=== PATIENT | female | born 1975 | race Caucasian/White ===

== ENCOUNTER 2017-08-09 01:26 | Emergency (ER) | payer BC ==
[~2017-08-09] VITALS: Ht 170.2 cm; Wt 91.9 kg
[2017-08-09] MEDS ORDERED: ONDANSETRON ODT 4 MG TAB.RAPDIS PO ONE ×2 (02:15→03:30)
[2017-08-09] MEDS ORDERED: HYDROmorphone PF 1 MG/ML DISP.SYRIN IM ONE (02:15)
--- NOTE | 2017-08-09 02:38 | PHYS DOC ---
General Chief Complaint: DENTAL PROBLEM Stated Complaint: FACIAL PAIN,DENTAL PAIN X 3 DAYS Time Seen by MD: 01:46 Source: patient Exam Limitations: no limitations Problems: History of Present Illness Initial Comments Patient is a 42-year-old female who comes to the ED complaining of dental and facial pain. Patient states that she is scheduled for a root canal later this morning, she's been taking amoxicillin, Advil, and Tylenol with codeine as prescribed and it had been helping until today. Today patient is complaining of severe left upper posterior molar dental pain as well as left maxillary sinus discomfort. She denies fever chills sweats or myalgias she has no throat or tongue swelling and denies any dysphasia, hoarseness, cough, or dyspnea on exertion. 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 Her ED vital signs are stable blood pressure with physiologic response to discomfort. Timing/Duration: other Severity: severe Location: facial, dental Prearrival Treatment: over the counter meds, prescription meds Modifying Factors: improves with other Associated Symptoms: facial pain/swelling, tooth pain Allergies: Coded Allergies: No Known Allergies (Verified Allergy, Unknown, 08/09/17) Past Medical History Medical History: no pertinent history Surgical History: no surgical history Social History Smoker: non-smoker Alcohol: none Drugs: none Constitutional: denies chills, denies diaphoresis, denies fever, denies malaise Eyes: denies blindness, denies blurred vision, denies drainage Ears: denies dizziness, denies pain, denies tinnitus Nose: denies congestion, denies epistaxis, denies pain Mouth: see HPI Throat: denies pain, denies swelling, denies neck stiffness, denies painful swallowing, denies difficulty with fluids Respiratory: denies cough, denies shortness of breath, denies wheezing Cardiovascular: denies chest pain, denies palpitations, denies syncope Gastrointestinal: denies abdominal pain, denies nausea, denies vomiting Neurological: see HPI Physical Exam General Appearance: WD/WN, moderate distress Eyes: bilateral eye normal inspection, bilateral eye PERRL, bilateral eye EOMI Nose: normal inspection Mouth/Throat: other (left upper posterior molar with caries and gingival swelling no bony tenderness no discharge or purulence. 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 0252: Patient rechecked, she is much more relaxed and states her pain is almost resolved. She really states that she doesn't want any imaging or further workup. As the Dilaudid will wear off shortly, Percocet 10 mg and a repeat Zofran 4 mg will be given in the emergency department. She is advised that she may double up on her [place] 5 mg prescription and is to take pain medications with food and stool softeners. Signs and symptoms to monitor and indications for urgent return were discussed and the patient's questions were answered. She expressed agreement and understanding with treatment plan. Departure Time of Disposition: 02:53 Disposition: 01 HOME, SELF-CARE Diagnosis: dental caries, pain control Condition: IMPROVED Patient Instructions: Dental Caries Additional Instructions: Continue current medications. Aggressive hydration with Gatorade or water. Take medications with food to avoid GI upset. Yojx-[id number]-[id number] stool softeners to avoid opiate associated constipation. Zofran ODT starter pack was dispensed in the emergency department. Take one every 4-6 hours as needed for nausea. Follow-up with your vendor relationship manager later today for root canal as scheduled. Return to ED with new or changing symptoms. WEST GUNDERSON DO Aug 09, 2017 02:38
[2017-08-09 03:10] VITALS: BP 141/72
[2017-08-09] MEDS ORDERED: ONDANSETRON 4MG ODT 4TABLET STARTPACK. PO ONE (03:30)
[2017-08-09] MEDS ORDERED: oxyCODONE/APAP 10/325 1 TAB TABLET PO ONE (03:30)
== END 2017-08-09 03:10 | disposition home or self-care (01) ==
LOC: ER 01:26
DX: K02.9 Dental caries, unspecified (principal)
CPT/HCPCS: 96372; 99284; J1170; Q0162

== ENCOUNTER → 2017-10-26 | Outpatient (CLI) | payer OTHER ==
--- NOTE | 2017-10-26 11:23 | RAD ---
DATE: 10/26/2017 EXAM: MAMMO MARIA TERESA DIMITRI TURCIOS, BREAST LEFT HISTORY: Left breast pain COMPARISON: None available This study was interpreted with the benefit of Computerized Aided Detection (CAD). The breast parenchyma is heterogeneously dense, which could reduce sensitivity of mammography. Breast parenchyma level C. FINDINGS: 2-D and 3-D tomosynthesis imaging was performed in CC and MLO projections. There are several small benign-appearing lymph node type densities in the lateral aspects of both breasts. An 8 mm smooth nodule is seen located just lateral to the midline of the left breast on CC tomogram image #44. There are additional small benign-appearing lymph nodes in the axillary regions. No suspicious microcalcifications are evident. Left breast ultrasound, 10/26/2017: A targeted ultrasound exam of the left breast was performed in the area of pain laterally. Several small benign-appearing lymph nodes are seen in the left axilla and axillary tail region. Approximately 4 cm from the nipple at the 1:00 location there is a 10 x 7 x 5 mm predominantly anechoic structure with posterior acoustic shadowing. It is wider than tall. The appearance is that of a cyst. This probably corresponds in location to the nodule seen on the left breast tomograms. Deeper in the left breast at the 1:00 location approximately 3 cm from the nipple there is an additional small smooth nodule measuring 3 x 4 x 8 mm. There are low level internal echoes with slight posterior acoustic enhancement. It is wider than tall. No internal color flow is seen. This is probably a complicated cyst versus a small fibroadenoma. No other abnormality was identified. IMPRESSION: 1. Simple cyst and a second probable complicated cyst at the 1:00 location in the left breast as described above. Sonographic follow-up beginning in 6 months is suggested to establish stability. 2. No significant right breast abnormality is detected. BI-RADS CATEGORY: 3 PROBABLY BENIGN FINDING(S)-SHORT INTERVAL FOLLOW-UP SUGGESTED RECOMMENDED FOLLOW-UP: 6M 6 MONTH FOLLOW-UP PQRS compliance statement: Patient information was entered into a reminder system with a target due date for the next mammogram. Mammography is a sensitive method for finding small breast cancers, but it does not detect them all and is not a substitute for careful clinical examination. A negative mammogram does not negate a clinically suspicious finding and should not result in delay in biopsying a clinically suspicious abnormality. "Our facility is accredited by the [employer] Mammography Program."
== END | disposition home or self-care (01) ==
LOC: MAMMO 08:55
PROVIDERS: ATTEND Nurse Practitioner Women's Health
DX: Z12.39 Encounter for other screening for malignant neoplasm of breast (principal); N60.12 Diffuse cystic mastopathy of left breast; N63.20 Unspecified lump in the left breast, unspecified quadrant
CPT/HCPCS: 76641; 77066; G0279; 77062

== ENCOUNTER → 2018-06-25 | Outpatient (CLI) | payer OTHER ==
--- NOTE | 2018-06-25 13:03 | RAD ---
Left breast ultrasound, 06/25/2018: History: Six-month follow-up of nodules A targeted ultrasound exam of left breast was performed at the 1:00 location. On the previous study of 10/26/2017 at the 1:00 location approximately 3 cm in the nipple there was a small hypoechoic nodule. It is no longer visualized. This presumably represented a cyst which has resolved. On the previous study at the 1:00 location approximately 4 cm from the nipple there was a predominantly cystic appearing nodule. It is redemonstrated on the current study and appears have to have decreased slightly in size. It currently measures 7 x 4 x 5 mm compared to measurements of 10 x 7 x 4 mm on the previous study. Its margins are smooth. It is wider than tall. There are low level internal echoes. Its decrease in size suggests that this is a benign cyst. IMPRESSION: 1. One small cyst seen on the previous study has resolved while the other has decreased in size, compatible with a benign etiology. 2. Routine bilateral mammographic surveillance beginning at the anniversary of the patient's 10/26/2017 study is suggested. BI-RADS 2-benign findings
== END | disposition home or self-care (01) ==
LOC: US 11:50
PROVIDERS: ATTEND Nurse Practitioner Women's Health
DX: R92.8 Other abnormal and inconclusive findings on diagnostic imaging of breast (principal)
CPT/HCPCS: 76641

== ENCOUNTER → 2018-06-27 | Outpatient (CLI) | payer OTHER ==
[2018-06-27 19:12] LABS: ALBUMIN 3.8 g/dL (3.4-5.0); CALCIUM 9.2 mg/dL (8.5-10.1); CREATININE 0.9 mg/dL (0.6-1.0); GFR 68.7; POTASSIUM 3.6 mmol/L (3.5-5.1); TOTAL BILIRUBIN 0.8 mg/dL (0.2-1.0); TOTAL PROTEIN 7.7 g/dL (6.4-8.2)
[2018-06-28 15:09] LABS: FREE T4 1.07 ng/dL (0.76-1.46); THYROID STIM HORMONE (TSH) 2.088 uIU/mL (0.358-3.740)
[2018-06-28 20:07] LABS: ESTRADIOL LEVEL 357.7 pg/mL (.); FSH 3.9 mIU/mL (.); PROGESTERONE <0.1 ng/mL (.); T3 TOTAL 98 ng/dL (71-180); TESTOSTERONE TOTAL 16 ng/dL (8-48)
== END | disposition home or self-care (01) ==
LOC: LAB 18:18
PROVIDERS: ATTEND Nurse Practitioner Women's Health
DX: Z13.220 Encounter for screening for lipoid disorders (principal); L65.9 Nonscarring hair loss, unspecified; R61 Generalized hyperhidrosis; R53.83 Other fatigue; Z68.29 Body mass index [BMI] 29.0-29.9, adult
CPT/HCPCS: 36415; 80053; 80061; 82306; 82670; 83001; 84144; 84403; 84439; 84443; 84480

== ENCOUNTER → 2018-07-26 | Outpatient (CLI) | payer OTHER | END | disposition home or self-care (01) | LOC: SPEC 12:16 | DX: Z01.419 Encounter for gynecological examination (general) (routine) without abnormal findings (principal) | CPT/HCPCS: 88175 ==

== ENCOUNTER → 2019-02-21 | Outpatient (CLI) | payer OTHER ==
--- NOTE | 2019-02-21 09:26 | RAD ---
DATE: 02/21/2019 EXAM: MAMMO MARIA TERESA SCREENING BILATERAL HISTORY: Routine screen COMPARISON: 10/26/2017 This study was interpreted with the benefit of Computerized Aided Detection (CAD). Breast Density: HETERO The breast parenchyma is heterogenously dense, which could reduce sensitivity of mammography. Breast parenchyma level C. FINDINGS: 2-D and 3-D tomosynthesis imaging was performed in CC and MLO projections. Benign-appearing lymph node type densities are again noted laterally in both breasts. The small nodule seen just lateral to the midline of the left breast on the previous study has regressed. No new or enlarging breast densities are seen. No suspicious microcalcifications are evident. IMPRESSION: Stable mammograms without evidence of malignancy. BI-RADS CATEGORY: 2 BENIGN FINDING(S) RECOMMENDED FOLLOW-UP: 12M 12 MONTH FOLLOW-UP PQRS compliance statement: Patient information was entered into a reminder system with a target due date for the next mammogram. Mammography is a sensitive method for finding small breast cancers, but it does not detect them all and is not a substitute for careful clinical examination. A negative mammogram does not negate a clinically suspicious finding and should not result in delay in biopsying a clinically suspicious abnormality. "Our facility is accredited by the [employer] Mammography Program."
== END | disposition home or self-care (01) ==
LOC: MAMMO 08:38
PROVIDERS: ATTEND Nurse Practitioner Women's Health
DX: Z12.31 Encounter for screening mammogram for malignant neoplasm of breast (principal); N63.20 Unspecified lump in the left breast, unspecified quadrant
CPT/HCPCS: 77063; 77067

== ENCOUNTER → 2020-02-03 | Outpatient (CLI) | payer OTHER | END | disposition home or self-care (01) | LOC: LAB 16:24 | PROVIDERS: ATTEND Internal Medicine Cardiovascular Disease | DX: R50.9 Fever, unspecified (principal); R05 Cough; R06.02 Shortness of breath; Z20.828 Contact with and (suspected) exposure to other viral communicable diseases | CPT/HCPCS: 87635 ==

== ENCOUNTER → 2020-02-26 | Outpatient (CLI) | payer OTHER ==
--- NOTE | 2020-02-26 13:41 | RAD ---
INDICATION: 44 years of age asymptomatic female patient presents for screening mammography. TECHNIQUE: Full field craniocaudal and mediolateral oblique images of both breasts were obtained using digital technique with tomosynthesis and also analyzed with computer-aided detection software. COMPARISON: Prior mammographic imaging dating back to 02/21/2019. BREAST COMPOSITION: Category C: The breast tissue is heterogeneously dense, which could obscure detection of small masses. FINDINGS: Benign calcifications are present. The parenchymal pattern appears stable. No suspicious masses, microcalcifications or architectural distortion is present to suggest malignancy in either breast. The visualized axillae are unremarkable. IMPRESSION: No mammographic evidence of malignancy. RECOMMENDATION: Annual screening mammography is recommended, unless clinically indicated sooner based on symptoms or change in physical exam. BIRADS 2: BENIGN Electronically signed by: Rafeal Campbell MD (02/26/2020 1:38 PM) [id number]
== END ==
LOC: MAMMO 10:07
PROVIDERS: ATTEND Nurse Practitioner Women's Health
DX: Z12.31 Encounter for screening mammogram for malignant neoplasm of breast (principal)
CPT/HCPCS: 77063; 77067

== ENCOUNTER → 2020-03-08 | Outpatient (CLI) | payer OTHER ==
[2020-03-08 09:01] LABS: ALBUMIN 3.5 g/dL (3.4-5.0); ALBUMIN/GLOBULIN RATIO 0.9 (1.0-1.7); CALCIUM 8.5 mg/dL (8.5-10.1); GFR 60.5; TOTAL BILIRUBIN 0.6 mg/dL (0.2-1.0); TOTAL PROTEIN 7.3 g/dL (6.4-8.2)
[2020-03-08 11:22] LABS: BASO # 0.1 x10^3/uL (0.0-0.2); BASO % 1 % (0-3); EOS # 0.1 x10^3/uL (0.0-0.7); EOS % 2 % (0-3); HEMATOCRIT 41.4 % (36.0-47.0); HEMOGLOBIN 14.2 g/dL (12.0-15.5); LYMPH # 1.1 x10^3/uL (1.0-4.8); LYMPH % 20 % (24-48); MEAN CORPUSCULAR HEMOGLOBIN 32 pg (25-35); MEAN CORPUSCULAR HGB CONC 34 g/dL (31-37); MEAN CORPUSCULAR VOLUME 94 fL (79-100); MONO # 0.3 x10^3/uL (0.0-1.1); MONO % 6 % (0-9); NEUT # 3.7 x10^3uL (1.8-7.7); NEUT % 70 % (31-73); PLATELET COUNT 311 x10^3/uL (140-400); RED BLOOD COUNT 4.42 x10^6/uL (3.50-5.40); RED CELL DISTRIBUTION WIDTH 12.7 % (11.5-14.5); WHITE BLOOD COUNT 5.3 x10^3/uL (4.0-11.0)
[2020-03-08 14:23] LABS: FREE T4 0.92 ng/dL (0.76-1.46); THYROID STIM HORMONE (TSH) 1.066 uIU/mL (0.358-3.740)
[2020-03-08 19:07] LABS: DHEA SO4 105.2 ug/dL (57.3-279.2); ESTRADIOL LEVEL 67.1 pg/mL (.); PROGESTERONE 0.2 ng/mL (.)
[2020-03-09 00:06] LABS: HEMOGLOBIN A1C 4.7 % (4.8-5.6)
[2020-03-12 10:08] LABS: TESTOSTERONE FREE 0.42 ng/dL (0.10-0.85); TESTOSTERONE TOTAL 27 ng/dL (8-48)
== END ==
LOC: LAB 06:38
PROVIDERS: ATTEND Nurse Practitioner Women's Health
DX: Z13.1 Encounter for screening for diabetes mellitus (principal); Z13.220 Encounter for screening for lipoid disorders; Z13.21 Encounter for screening for nutritional disorder; Z00.00 Encounter for general adult medical examination without abnormal findings; N95.9 Unspecified menopausal and perimenopausal disorder; G25.81 Restless legs syndrome; F32.9 Major depressive disorder, single episode, unspecified; F41.9 Anxiety disorder, unspecified; Z79.899 Other long term (current) drug therapy
CPT/HCPCS: 36415; 80053; 80061; 82306; 82627; 82670; 83036; 84144; 84402; 84403; 84439; 84443; 84481; 85025

== ENCOUNTER → 2020-04-15 | Outpatient (CLI) | payer OTHER | LOC: LAB 07:52 | PROVIDERS: ATTEND Internal Medicine Cardiovascular Disease | DX: J45.909 Unspecified asthma, uncomplicated (principal); Z20.828 Contact with and (suspected) exposure to other viral communicable diseases | CPT/HCPCS: 36415; U0003 ==

== ENCOUNTER → 2020-04-21 | Outpatient (CLI) | payer OTHER | END | disposition home or self-care (01) | LOC: LAB 17:11 | PROVIDERS: ATTEND Internal Medicine Cardiovascular Disease | DX: Z20.828 Contact with and (suspected) exposure to other viral communicable diseases (principal) | CPT/HCPCS: C9803; U0003; 36415 ==

== ENCOUNTER → 2020-08-09 | Outpatient (CLI) | payer OTHER ==
--- NOTE | 2020-08-09 13:30 | RAD ---
EXAMINATION: NECK SOFT TISSUE, 08/09/2020 8:00 AM CLINICAL INDICATION: Anterior neck pain COMPARISON: None. TECHNIQUE: Grayscale and color Doppler ultrasound imaging performed of the neck with a focus on the area of pain in the right submandibular/submental region. FINDINGS: No mass, fluid, or lymphadenopathy in the area of pain in the right neck. IMPRESSION: No sonographic abnormality in the right neck in the area of pain. If further evaluation is needed, CT of the neck with contrast could be obtained. Electronically signed by: Leia Osman MD (08/09/2020 1:27 PM) [id number]
== END ==
LOC: US 07:48
PROVIDERS: ATTEND Physician Assistant
DX: M54.2 Cervicalgia (principal)
CPT/HCPCS: 76536

== ENCOUNTER → 2020-08-10 | Outpatient (CLI) | payer OTHER | LOC: LAB 09:46 | PROVIDERS: ATTEND Internal Medicine Cardiovascular Disease | DX: Z20.828 Contact with and (suspected) exposure to other viral communicable diseases (principal) | CPT/HCPCS: U0003 ==

== ENCOUNTER → 2020-09-10 | Outpatient (CLI) | payer OTHER ==
--- NOTE | 2020-09-10 13:34 | RAD ---
4 VIEW LEFT KNEE SERIES Clinical indications: Left knee pain. FINDINGS: No acute fracture or dislocation or lytic process is seen. No significant joint space narro wing or spurring is seen. The patella is normally aligned. No significant joint space narrowing or sp urring is seen. No erosive arthropathy is evident. No significant swelling or suprapatellar bursa is seen to indicate a joint effusion radiographically. IMPRESSION: No significant osseous abnormality. 2 VIEW STUDY OF THE LEFT HIP AND AP VIEW OF THE PELVIS Clinical indications: Left hip pain. FINDINGS: The hip joints are symmetric and no significant degenerative joint space narrowing or spurr ing is seen. No erosive arthropathy is evident. 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 The SI joints are unremarkable. No acute fracture or dislocation or lytic process or amado stases is evident. IMPRESSION: No significant osseous abnormality. Electronically signed by: Hayden Cunningham MD (09/10/2020 11:45 AM) [id number]
--- NOTE | 2020-09-13 00:15 | RAD ---
INDICATION: Varicose veins COMPARISON: None. TECHNIQUE: Color, grayscale and spectral doppler ultrasound images obtained of the bilateral lower ex tremity saphenous system. FINDINGS: Measurements from proximal to distal are in mm: Right: Greater Saphenous: Thigh 6.6, 5.5, 4.7; Calf 3.3, 2.1, 2.3. From proximal to distal the reflux time in seconds is: 1.3, 2.1, 2.2, 1.3, 1.4, 1.7 Lesser Saphenous: Calf: 4.3, 2.6 Left: Greater Saphenous: Thigh 8.5, 5.6, 4.9; Calf 4.8, 3.9 From proximal to distal the reflux time in seconds is: 1.1, 3, 1.5, 1.8, 3 Lesser Saphenous: Not seen at distal thigh, 2.2 at calf IMPRESSION: 1. Right greater saphenous vein reflux is identified from the groin to the ankle. 2. Left greater saphenous vein reflux is identified from the groin to the proximal calf. Tortuous sheila earance. Electronically signed by: Michael Anaya MD (09/13/2020 12:13 AM) [id number]
== END ==
LOC: RAD 10:19
PROVIDERS: ATTEND Nurse Practitioner Women's Health
DX: I83.93 Asymptomatic varicose veins of bilateral lower extremities (principal); M16.12 Unilateral primary osteoarthritis, left hip; M25.562 Pain in left knee; G89.29 Other chronic pain
CPT/HCPCS: 73502; 73564; 93970

== ENCOUNTER → 2020-10-15 | Outpatient (CLI) | payer OTHER ==
[~2020-10-15] MED LIST: IOHEXOL 240 MG/ML 50ML VIAL. ONE; IOHEXOL 240 MG/ML 50ML VIAL. PO ONE; IOHEXOL 300 MG/ML 75 ML VIAL. IV ONE
--- NOTE | 2020-10-15 12:25 | RAD ---
SONOGRAPHY OF THE LEFT KNEE Clinical indications: Left knee pain. Mass lesion seen on MRI study October 13, 2020. FINDINGS: High-resolution sonography of the lateral anterior aspect of the left knee inferior to the patella was performed. There is a solid mass lesion present here measuring 2.9 cm x 1.3 cm x 2.2 cm i n size. Color Doppler flow is seen within the mass some of which is arterial in nature. This correspo nds to the MRI finding. IMPRESSION: Finding seen on MRI study corresponds to a solid mass measuring up to 2.9 cm in size. Dif ferential considerations include synovial sarcoma versus focal nodular synovitis/pigmented villonodul ar synovitis. Another possibility is arteriovenous malformation/hemangioma. Orthopedic consultation i s recommended. Electronically signed by: Hayden Cunningham MD (10/15/2020 12:23 PM) [id number]
--- NOTE | 2020-10-15 13:20 | RAD ---
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 TECHNIQUE: After IV infusion of 75 cc of Omnipaque 300, helical CT scanning of the abdomen and pelvis was performed. GI contrast was administered per mouth. PQRS COMPLIANCE STATEMENT One or more of the following individualized dose reduction techniques were utilized for this study: 1. Automated exposure control 2. Adjustment of the mA and/or kV according to patient size 3. Use of iterative reconstruction technique COMPARISON: None available. CHEST CT: No enlarged thoracic lymphadenopathy is evident. No focal aneurysmal dilatation or dissecti on of the thoracic aorta is seen. The heart size normal and no pericardial effusion is seen. On serie s 4 and image 72, a subpleural 5 mm lung nodule is seen within the posterior right lower lobe. No gaby g nodule or lung mass is evident. No consolidative lung infiltrate is seen. No pleural effusion or pn eumothorax is evident. Proximal bronchial tree is patent. No lytic process is seen. IMPRESSION: Small 5 mm right lower lobe lung nodule. As per Fleischner guidelines, follow-up noncontr ast chest CT in 12 months is recommended if the patient is at high risk for lung malignancy such as s moking history. However, if mass within the left knee proves to be a sarcoma, then short-term follow- up chest CT in 3 months may be needed. ABDOMEN AND PELVIS CT: There are 2 small lesions within the posterior segment of the right lobe of th e liver. The first one is seen on series 7 image 45 which measures 4 Hounsfield units. The second is located more inferiorly and laterally and measures -2 Hounsfield units. Therefore, these most likely represent cysts. These lesions are seen on series 7 and image 45 and 54 respectively. There is a tiny lesion within the anterior dome of the left lobe liver seen on image 26. This may represent addition al hepatic cyst but is too small to accurately characterized at this point in time. There is a simila r lesion seen within the lateral aspect of the right lobe liver on image 32. There is another similar lesion seen on image 45 adjacent to the gallbladder fossa. The spleen is not enlarged. The pancreas and gallbladder are normal. No extrahepatic biliary ductal dilatation is seen. No adrenal mass is alyce dent. Both kidneys are normal without hydronephrosis or hydroureter. Urinary bladder is not abnormall y distended. No uterine mass is seen. No dominant ovarian cyst or mass is seen. No focal aneurysmal d ilatation of the abdominal aorta is seen. No enlarged abdominal or pelvic lymphadenopathy is seen. No obstructive bowel pattern is evident. Terminal ileum is unremarkable. The appendix is normal. No juan e air or free fluid or mesenteric edema is seen. No lytic process is seen. IMPRESSION: Small hepatic cysts. Additional indeterminate subcentimeter hypodense nodules of liver ar e seen which most likely represent additional smaller cysts. No acute abnormality of the abdomen or pelvis. Electronically signed by: Hayden Cunningham MD (10/15/2020 1:18 PM) [id number]
== END ==
LOC: US 11:04
PROVIDERS: ATTEND Nurse Practitioner Women's Health
DX: C49.9 Malignant neoplasm of connective and soft tissue, unspecified (principal)
CPT/HCPCS: 71260; 74177; 76881; Q9966; Q9967

== ENCOUNTER → 2020-10-18 | Outpatient (CLI) | payer OTHER ==
[2020-10-18 10:16] LABS: BASO # 0.1 x10^3/uL (0.0-0.2); BASO % 1 % (0-3); EOS # 0.1 x10^3/uL (0.0-0.7); EOS % 2 % (0-3); HEMATOCRIT 41.9 % (36.0-47.0); HEMOGLOBIN 14.5 g/dL (12.0-15.5); LYMPH # 1.2 x10^3/uL (1.0-4.8); LYMPH % 21 % (24-48); MEAN CORPUSCULAR HEMOGLOBIN 32 pg (25-35); MEAN CORPUSCULAR HGB CONC 35 g/dL (31-37); MEAN CORPUSCULAR VOLUME 92 fL (79-100); MONO # 0.3 x10^3/uL (0.0-1.1); MONO % 6 % (0-9); NEUT % 70 % (31-73); PLATELET COUNT 336 x10^3/uL (140-400); RED BLOOD COUNT 4.57 x10^6/uL (3.50-5.40); RED CELL DISTRIBUTION WIDTH 12.7 % (11.5-14.5); WHITE BLOOD COUNT 5.7 x10^3/uL (4.0-11.0)
[2020-10-18 10:42] LABS: ALBUMIN 3.7 g/dL (3.4-5.0); ALBUMIN/GLOBULIN RATIO 0.9 (1.0-1.7); CALCIUM 8.8 mg/dL (8.5-10.1); CREATININE 0.9 mg/dL (0.6-1.0); POTASSIUM 3.7 mmol/L (3.5-5.1); TOTAL BILIRUBIN 0.4 mg/dL (0.2-1.0); TOTAL PROTEIN 7.7 g/dL (6.4-8.2)
[2020-10-18 15:45] LABS: FREE T4 0.98 ng/dL (0.76-1.46)
[2020-10-18 15:46] LABS: THYROID STIM HORMONE (TSH) 2.167 uIU/mL (0.358-3.740)
[2020-10-18 21:10] LABS: DHEA SO4 119.9 ug/dL (57.3-279.2)
== END ==
LOC: LAB 08:19
PROVIDERS: ATTEND Nurse Practitioner Women's Health
DX: Z13.1 Encounter for screening for diabetes mellitus (principal); Z13.220 Encounter for screening for lipoid disorders; Z13.21 Encounter for screening for nutritional disorder; E55.9 Vitamin D deficiency, unspecified; N95.9 Unspecified menopausal and perimenopausal disorder; E03.9 Hypothyroidism, unspecified; L65.9 Nonscarring hair loss, unspecified; R61 Generalized hyperhidrosis
CPT/HCPCS: 36415; 80053; 80061; 82306; 82627; 82670; 84144; 84402; 84403; 84439; 84443; 84481; 85025

== ENCOUNTER → 2021-01-25 | Outpatient (CLI) | payer OTHER | LOC: ECHO 09:08 | PROVIDERS: ATTEND Internal Medicine Cardiovascular Disease | DX: I87.2 Venous insufficiency (chronic) (peripheral) (principal); I87.323 Chronic venous hypertension (idiopathic) with inflammation of bilateral lower extremity | CPT/HCPCS: 93306 ==

== ENCOUNTER → 2021-04-08 | Outpatient (CLI) | payer OTHER ==
[2021-04-08 09:56] LABS: BASO # 0.1 x10^3/uL (0.0-0.2); BASO % 1 % (0-3); EOS # 0.1 x10^3/uL (0.0-0.7); EOS % 2 % (0-3); HEMATOCRIT 43.4 % (36.0-47.0); LYMPH # 1.3 x10^3/uL (1.0-4.8); LYMPH % 22 % (24-48); MEAN CORPUSCULAR HEMOGLOBIN 32 pg (25-35); MEAN CORPUSCULAR HGB CONC 35 g/dL (31-37); MEAN CORPUSCULAR VOLUME 92 fL (79-100); MONO # 0.4 x10^3/uL (0.0-1.1); MONO % 7 % (0-9); NEUT # 3.9 x10^3uL (1.8-7.7); NEUT % 68 % (31-73); PLATELET COUNT 344 x10^3/uL (140-400); RED BLOOD COUNT 4.72 x10^6/uL (3.50-5.40); RED CELL DISTRIBUTION WIDTH 12.9 % (11.5-14.5); WHITE BLOOD COUNT 5.7 x10^3/uL (4.0-11.0)
[2021-04-08 10:18] LABS: ALBUMIN/GLOBULIN RATIO 1.1 (1.0-1.7); CREATININE 0.9 mg/dL (0.6-1.0); POTASSIUM 4.2 mmol/L (3.5-5.1); TOTAL BILIRUBIN 0.5 mg/dL (0.2-1.0); TOTAL PROTEIN 7.8 g/dL (6.4-8.2)
[2021-04-08 15:32] LABS: FREE T4 0.89 ng/dL (0.76-1.46); THYROID STIM HORMONE (TSH) 0.905 uIU/mL (0.358-3.740)
[2021-04-09 01:08] LABS: ESTRADIOL LEVEL 74.3 pg/mL (.)
[2021-04-09 02:08] LABS: DHEA SO4 135.6 ug/dL (57.3-279.2); PROGESTERONE 1.5 ng/mL (.)
== END ==
LOC: LAB 09:08
PROVIDERS: ATTEND Nurse Practitioner Women's Health
DX: Z13.1 Encounter for screening for diabetes mellitus (principal); Z13.220 Encounter for screening for lipoid disorders; Z13.21 Encounter for screening for nutritional disorder; N95.9 Unspecified menopausal and perimenopausal disorder; R61 Generalized hyperhidrosis; E55.9 Vitamin D deficiency, unspecified; R53.83 Other fatigue; E34.9 Endocrine disorder, unspecified; G47.10 Hypersomnia, unspecified; L65.9 Nonscarring hair loss, unspecified; Z79.890 Hormone replacement therapy
CPT/HCPCS: 36415; 80053; 80061; 82306; 82607; 82627; 82670; 84144; 84402; 84403; 84439; 84443; 84481; 85025

== ENCOUNTER → 2021-04-24 | Outpatient (CLI) | payer OTHER | LOC: LAB 09:35 | PROVIDERS: ATTEND Internal Medicine Cardiovascular Disease | DX: U07.1 COVID-19 (principal) | CPT/HCPCS: U0003 ==

== ENCOUNTER → 2021-05-16 | Outpatient (CLI) | payer BC ==
--- NOTE | 2021-05-16 14:55 | RAD ---
INDICATION: 45 years of age asymptomatic female patient presents for screening mammography. TECHNIQUE: Full field craniocaudal and mediolateral oblique images of both breasts were obtained usi ng digital technique with tomosynthesis and also analyzed with computer-aided detection software. COMPARISON: Prior mammographic imaging dating back to 02/26/2020 02/21/2019 10/26/2017. BREAST COMPOSITION: Category C: The breast tissue is heterogeneously dense, which could obscure detec tion of small masses. FINDINGS: The parenchymal pattern appears stable. Benign calcifications are present. No suspicious masses, microcalcifications or architectural distortion is present to suggest malignanc y in either breast. The visualized axillae are unremarkable. IMPRESSION: No mammographic evidence of malignancy. RECOMMENDATION: Annual screening mammography is recommended, unless clinically indicated sooner based on symptoms or change in physical exam. BIRADS 2: BENIGN This study was interpreted with the benefit of Computerized Aided Detection (CAD). ?Your patient's mammogram demonstrates that she has dense breast tissue (breast density category C or D), which could hide abnormalities, and if she has other risk factors for breast cancer that have be en identified, she might benefit from supplemental screening tests that may be suggested by you as he r ordering physician. Dense breast tissue, in and of itself, is a relatively common condition. Theref ore, this information is not provided to cause undue concern, but rather to raise your awareness and to promote discussion with your patient regarding the presence of other risk factors, in addition to dense breast tissue. Your patient's mammography results will be sent to her. Patient information is entered into the reminder system with a target due date for the next screening mammogram. Mammography is the most sensitive method for finding small breast cancers, but it does not detect the m all and is not a substitute for careful clinical examination. A negative mammogram does not negate a clinically suspicious finding and should not result in delay in biopsying a clinically suspicious a bnormality. "Our facility is accredited by the [employer] Mammography Program." Electronically signed by: Rafael Campbell MD (05/16/2021 2:52 PM) [id number]
== END ==
LOC: MAMMO 08:33
PROVIDERS: ATTEND Nurse Practitioner Women's Health
DX: Z12.31 Encounter for screening mammogram for malignant neoplasm of breast (principal)
CPT/HCPCS: 77063; 77067

== ENCOUNTER → 2021-06-23 | Outpatient (CLI) | payer OTHER ==
--- NOTE | 2021-06-23 10:58 | RAD ---
MR#: [id number] Date of Study: 06/23/2021 Ordering Physician: SUMEET PRETTY, Referring Physician: SUMEET PRETTY, Tech: Keke Colon RVT, [facility] APPROVED REPORT Bilateral Lower Extremity Venous Study for DVT Patient Location: OUT-PATIENT Indications Grayscale images of the bilateral saphenofemoral junctions are grossly unremarkable. There is thromb us noted in the great saphenous vein approximately 2 cm distal to the junction. No thrombus is noted in the deep veins. Spectral waveforms and color Doppler of the bilateral common femoral, superficial femoral, popliteal and below-knee veins is unremarkable. The veins are compressible without any obvious evidence of thr ombus. The bilateral greater saphenous veins are notable for thrombus consistent with recent ablatio n. Risk Factors Post OP Recent bilateral GSV venaseal Vein Imaging (Right) CFV (R): Compressible SFJ (R): Compressible FEM (R): Compressible POP (R): Compressible DFV (R): Compressible PTV (R): Compressible Peroneals (R): Compressible Vein Imaging (Left) CFV (L): Compressible SFJ (L): Compressible FEM (L): Compressible POP (L): Compressible DFV (L): Compressible PTV (L): Compressible Peroneals (L): Compressible Critical Notification Critical Value: No <Conclusion> 1. Successful bilateral greater saphenous vein ablations 2. Negative for DVT Signed by : Sundar Brown, Electronically Approved : 06/23/2021 10:57:53
== END ==
LOC: US 08:39
PROVIDERS: ATTEND Internal Medicine Cardiovascular Disease
DX: I82.813 Embolism and thrombosis of superficial veins of lower extremities, bilateral (principal)
CPT/HCPCS: 93970

== ENCOUNTER → 2021-10-13 | Outpatient (CLI) | payer OTHER | LOC: LAB 09:59 | PROVIDERS: ATTEND Internal Medicine Cardiovascular Disease | DX: R05.9 Cough, unspecified (principal); R51.9 Headache, unspecified; R09.81 Nasal congestion; J02.9 Acute pharyngitis, unspecified; Z20.822 Contact with and (suspected) exposure to COVID-19 | CPT/HCPCS: U0003 ==

== ENCOUNTER → 2021-10-17 | Outpatient (CLI) | payer OTHER | LOC: LAB 07:49 | PROVIDERS: ATTEND Internal Medicine Cardiovascular Disease | DX: U07.1 COVID-19 (principal) | CPT/HCPCS: U0003 ==